=== PATIENT | female | born 1930 | race Caucasian/White ===

== ENCOUNTER 2017-02-28 10:15 | Inpatient (IN) | payer OTHER, MEDICARE ==
[~2017-02-28] VITALS: Ht 152.4 cm; Wt 58.6 kg
[~2017-02-28 10:15] MED LIST: ASPCH81X PO; BRIM0.2S OPB; CALC-51 PO; CEFT1INJ26 IV; CLON0.5T3 PO; DOCU100C31 PO; FRS/40 PO; GABA-112 PO; LEVE500T PO; MAGNTAB4 PO; METO-217 PO; PLV75 PO; POTA20TA16 PO; SIMV10TA2 PO
[2017-02-28] MEDS ORDERED: ASPIRIN 81 MG CHEW PO STA (10:35)
[2017-02-28] MEDS ORDERED: SLWMEC PO (10:53)
[2017-02-28 10:56] LABS: BASO % 0.2 %; BASO ABS # 0.01 K/uL (0-0.2); COMPLETE YES; EOS % 0.7 %; IG% 0.4 %; LYMPH % 17.5 %; MEAN CELL VOLUME 88.5 fL (80-100); MEAN CORPUSCULAR HEMOGLOBIN 29.4 pg (25-34); MEAN CORPUSCULAR HGB CONC 33.3 g/dl (32-36); MEAN PLATELET VOLUME 10.6 fL (7.4-10.4); MONO % 7.4 %; NEUT % 73.8 %; PLATELET COUNT 156 K/uL (130-400); RED BLOOD COUNT 4.52 M/uL (4.2-5.4); WHITE BLOOD COUNT 4.57 K/uL (4.8-10.8)
--- NOTE | 2017-02-28 11:00 | DIAGNOSTIC IMAGING REPORT ---
CHEST ONE VIEW PORTABLE CLINICAL HISTORY: Chest pain. COMPARISON STUDY: Chest radiograph September 30, 2016. FINDINGS: A proximal right humeral internal fixation, left axilla surgical clips and left subclavian Aarovi-z-Ucoh are in place. There is no pneumothorax. There is a possible small left pleural effusion. There is hazy left basilar opacity. Right lung is clear. There is no evidence of pulmonary edema. Moderate enlargement of the cardiac silhouette is unchanged. IMPRESSION: 1. Possible small left pleural effusion. Apparent left basilar opacity which could be artifactual. Radiographic follow-up is recommended. 2. Stable cardiomegaly without evidence of pulmonary edema. Electronically signed by: Jerome Juarez M.D. 02/28/2017 10:58 AM Dictated Date/Time: 02/28/2017 10:57 AM
[2017-02-28 11:17] LABS: BLOOD UREA NITROGEN 20 mg/dl (7-18); BUN/CREATININE RATIO 20.8 (10-20); CALCIUM 8.8 mg/dl (8.5-10.1); CARBON DIOXIDE 31 mmol/L (21-32); CHLORIDE 105 mmol/L (98-107); CREATININE 0.97 mg/dl (0.60-1.20); GLUCOSE 212 mg/dl (70-99); POTASSIUM 4.1 mmol/L (3.5-5.1); SODIUM 141 mmol/L (136-145)
[2017-02-28 11:23] LABS: ALKALINE PHOSPHATASE 76 U/L (45-117); ALT/SGPT 25 U/L (12-78); AST/SGOT 16 U/L (15-37); CKMB/CK RATIO 8.2 (0-3.0)
[2017-02-28 11:29] LABS: PROTHROMBIN TIME (PATIENT) 10.3 SECONDS (9.0-12.0)
[2017-02-28 12:54] LABS: CKMB/CK RATIO 7.9 (0-3.0)
--- NOTE | 2017-02-28 13:32 | EMERGENCY ROOM VISIT NOTE ---
History Report prepared by Norman: Song Rey Under the Supervision of: Dr. Albin Quinonez M.D. First contact with patient: 10:25 Chief Complaint: CHEST PAIN Stated Complaint: CHEST PAIN History of Present Illness The patient is a 86 year old female who presents to the Emergency Room with complaints of intermittent chest pain beginning yesterday. She states that she was sitting in a chair when her symptoms began. She states that her current pain became present 2.5 hours ago and is less severe than her pain yesterday. The patient denies any modifying factors. She has not had any aspirin today. Per caregiver, the patient has problems with two heart valves. Source of History: patient, caregiver Onset: Yesterday Position: chest Timing: intermittent Modifying Factors (Worsening): other (none) Modifying Factors (Relieving): other (none) Review of Systems See HPI for pertinent positives & negatives. A total of 10 systems reviewed and were otherwise negative. Past Medical & Surgical Medical Problems: (1) Acute blood loss anemia (2) Anticoagulants,Lt,Current Use (3) CHEST PAIN.AORTIC STENOSIS (4) CHF, VALVULAR HEART DISEASE,DM2,ART.HTN (5) Hypertension Nos (6) Mixed Hyperlipidemia (7) Pure Hypercholesterolem (8) TRANSIENT APHASIA, R/O CVA, HTN,DM2 Family History FH: cancer Stroke Social History Smoking Status: Never Smoker Alcohol Use: none Drug Use: none Marital Status: Housing Status: lives with family Occupation Status: retired Current/Historical Medications Scheduled Aspirin (Aspirin Chewable), 81 MG PO DAILY Brimonidine Tartrate-Timolol M (Combigan), 1 DROP OPB BID Clonazepam (Klonopin), 0.5 MG PO HS Clopidogrel Bisulfate (Clopidogrel), 75 MG PO QAM Docusate Sodium (Docusate Sodium), 1 CAP PO BID Furosemide (Lasix), 40 MG PO MWF Gabapentin (Neurontin), 100 MG PO TID Levetiractam (Levetiracetam), 500 MG PO BID Magnesium Chloride (Slow-Mag Tab), 64 MG PO BID Metoprolol Succinate (Toprol Xl), 50 MG PO DAILY Potassium Ext Rel (Klor-Con), 20 MEQ PO BID Simvastatin (Zocor), 10 MG PO QPM Allergies Coded Allergies: Sulfa Antibiotics (Verified Allergy, Unknown, ALLERGIC TO ABX FOR UTI, ) Physical Exam Vital Signs Date Time Temp Pulse Resp B/P Pulse Ox O2 Delivery O2 Flow Rate FiO2 02/28/17 14:12 79 18 137/82 95 Room Air 02/28/17 13:26 70 18 132/73 96 Room Air 02/28/17 12:16 68 02/28/17 12:15 75 18 138/73 95 Room Air 02/28/17 11:11 79 18 149/80 96 Room Air 02/28/17 10:45 98 Room Air 02/28/17 10:45 98 Room Air 02/28/17 10:45 98 Room Air 02/28/17 10:44 82 02/28/17 10:18 36.6 80 18 140/75 98 Room Air Physical Exam GENERAL: Patient is a healthy-appearing well-nourished HEAD: Normocephalic atraumatic EYES: Ocular movements intact pupils equal and react to light OROPHARYNX mucous membranes are moist no exudates present no erythema or edema present NECK: Supple no nuchal rigidity CHEST: Good equal expansion LUNGS: Clear and equal to auscultation CARDIAC: Grade 4/6 systolic murmur ABDOMEN: Soft nontender no guarding BACK: No CVA tenderness EXTREMITIES: No pain upon palpation normal muscle strength in all groups no clubbing cyanosis or edema NEURO: Patient is following commands is answering questions appropriately. Alert and oriented x3 Cranial Nerves 2-12 grossly intact Medical Decision & Procedures ER Provider Diagnostic Interpretation: X-ray results as stated below per interpretation by me and the radiologist: CHEST ONE VIEW PORTABLE FINDINGS: A proximal right humeral internal fixation, left axilla surgical clips and left subclavian Ohmyje-a-Sltq are in place. There is no pneumothorax. There is a possible small left pleural effusion. There is hazy left basilar opacity. Right lung is clear. There is no evidence of pulmonary edema. Moderate enlargement of the cardiac silhouette is unchanged. IMPRESSION: 1. Possible small left pleural effusion. Apparent left basilar opacity which could be artifactual. Radiographic follow-up is recommended. 2. Stable cardiomegaly without evidence of pulmonary edema. Electronically signed by: Jerome Juarez M.D. Laboratory Results 02/28/17 10:40 Red Blood Count 4.52, Mean Corpuscular Volume 88.5, Mean Corpuscular Hemoglobin 29.4, Mean Corpuscular Hemoglobin Concent 33.3, Mean Platelet Volume 10.6, Neutrophils (%) (Auto) 73.8, Lymphocytes (%) (Auto) 17.5, Monocytes (%) (Auto) 7.4, Eosinophils (%) (Auto) 0.7, Basophils (%) (Auto) 0.2, Neutrophils # (Auto) 3.37, Lymphocytes # (Auto) 0.80, Monocytes # (Auto) 0.34, Eosinophils # (Auto) 0.03, Basophils # (Auto) 0.01 02/28/17 10:40 Test 02/28/17 10:40 02/28/17 12:07 White Blood Count 4.57 K/uL (4.8-10.8) Red Blood Count 4.52 M/uL (4.2-5.4) Hemoglobin 13.3 g/dL (12.0-16.0) Hematocrit 40.0 % (37-47) Mean Corpuscular Volume 88.5 fL (80-100) Mean Corpuscular Hemoglobin 29.4 pg (25-34) Mean Corpuscular Hemoglobin Concent 33.3 g/dl (32-36) Platelet Count 156 K/uL (130-400) Mean Platelet Volume 10.6 fL (7.4-10.4) Neutrophils (%) (Auto) 73.8 % Lymphocytes (%) (Auto) 17.5 % Monocytes (%) (Auto) 7.4 % Eosinophils (%) (Auto) 0.7 % Basophils (%) (Auto) 0.2 % Neutrophils # (Auto) 3.37 K/uL (1.4-6.5) Lymphocytes # (Auto) 0.80 K/uL (1.2-3.4) Monocytes # (Auto) 0.34 K/uL (0.11-0.59) Eosinophils # (Auto) 0.03 K/uL (0-0.5) Basophils # (Auto) 0.01 K/uL (0-0.2) RDW Standard Deviation 43.0 fL (36.4-46.3) RDW Coefficient of Variation 13.4 % (11.5-14.5) Immature Granulocyte % (Auto) 0.4 % Immature Granulocyte # (Auto) 0.02 K/uL (0.00-0.02) Prothrombin Time 10.3 SECONDS (9.0-12.0) Prothromb Time International Ratio 1.0 (0.9-1.1) Anion Gap 5.0 mmol/L (3-11) Estimated GFR () 60.4 Estimated GFR (Non- 52.1 BUN/Creatinine Ratio 20.8 (10-20) Calcium Level 8.8 mg/dl (8.5-10.1) Total Bilirubin 0.5 mg/dl (0.2-1) Direct Bilirubin 0.1 mg/dl (0-0.2) Aspartate Amino Transf (AST/SGOT) 16 U/L (15-37) Alanine Aminotransferase (ALT/SGPT) 25 U/L (12-78) Alkaline Phosphatase 76 U/L (45-117) Total Protein 6.7 gm/dl (6.4-8.2) Albumin 3.2 gm/dl (3.4-5.0) Lipase 108 U/L (73-393) Total Creatine Kinase 34 U/L (26-192) Creatine Kinase MB 2.7 ng/ml (0.5-3.6) Creatine Kinase MB Ratio 7.9 (0-3.0) Troponin I 0.017 ng/ml (0-0.045) Labs reviewed by ED physician. Medications Administered Medications (Trade) Dose Ordered Sig/Romeo Route Start Time Stop Time Status Last Admin Dose Admin Aspirin (Aspirin Chew) 324 mg NOW STAT PO 02/28/17 10:35 02/28/17 10:37 DC 02/28/17 10:51 324 MG ECG Indication: chest pain Rate (beats per minute): 87 Rhythm: normal sinus Findings: no acute ischemic change, no ectopy Change: Repeat ECG reveals a sinus rhythm of 72 bpm. No ischemia or ectopy seen. LVH. Unchanged from previous ECG. ED Course 1029: Past medical records reviewed. The patient was evaluated in room B11B. A complete history and physical examination was performed. 1035: Ordered Aspirin Chew 324 mg PO. 1150: I reassessed the patient. She is currently pain free. 1322: Upon reexamination the patient is resting comfortably. I discussed results and treatment plan with the patient. She verbalizes agreement and understanding. I spoke with Dr. Montano from the [facility]. The patient will be evaluated for further management. Medical Decision Differential diagnosis: Etiologies such as cardiac ischemia, aortic dissection, pulmonary embolism, pneumonia, pneumothorax, musculoskeletal, infections, pericarditis, myocarditis , esophageal rupture, gastrointestinal, as well as others were entertained. This is an 86-year-old female who presents emergency department complaining of chest pain that occurred last evening and then prior to coming to the emergency department this morning. The patient's troponin is not 0. Repeat troponin was performed which had a slight increase. The patient was given 324 mg of aspirin in the emergency department. Repeat examination revealed improvement patient's symptoms. The patient I feel is at high risk as she has a history of severe aortic stenosis. I did discuss the case with the patient's hospitalist who agreed to admit the patient. Patient and family were in agreement with the treatment plan. Consults Time Called: 1301 Consulting Physician: Dr. Montano -[facility] Returned Call: 1324 I discussed the patient's case with Dr. Montano, he has agreed to evaluate the patient for further management and care. Impression Primary Impression: Chest pain Scribe Attestation The scribe's documentation has been prepared under my direction and personally reviewed by me in its entirety. I confirm that the note above accurately reflects all work, treatment, procedures, and medical decision making performed by me. Departure Information Dispostion Being Evaluated By Hospitalist Referrals Issa Chávez M.D. (PCP) Patient Instructions My [facility] Problem Qualifiers Primary Impression: Chest pain Chest pain type: unspecified Qualified Codes: R07.9 - Chest pain, unspecified
[2017-02-28] MEDS ORDERED: NITROGLYCERIN 0.4 MG SL PER TAB CHARGE SL PRN (14:30)
[2017-02-28 15:20] VITALS: BP 111/75; PULSE 88; TEMP 37.2; O2SAT 96; Ht 152.4 cm; Wt 58.6 kg
--- NOTE | 2017-02-28 17:21 | ECHOCARDIOGRAM REPORT ---
*NOTICE TO RECEIVING [employer] This information is strictly Confidential and protected under [place] law. [place] law prohibits you from making any further disclosure of this information unless further disclosure is expressly permitted by the written consent of the person to whom it pertains or is authorized by law. A general authorization for the release of medical or other information is not sufficient for this purpose. Hospital accepts no responsibility if the information is made available to any other person, INCLUDING THE PATIENT. Interpretation Summary * Name: JAMESON BROWNING Study Date: 02/28/2017 03:11 PM BP: 137/82 mmHg * Patient Location: .ED HR: 79 * : 1930 (M/d/yyyy) Gender: Female Height: 60 in * Age: 86 yrs Ethnicity: [place] Weight: 138 lb * Ordering Physician: Issa Chávez * Referring Physician: Self, Referred * Performed By: Van Reyes RCS * * Reason For Study: Chest Pain, Hx of Aortic Stenosis \T\ Mirtal Regurge * BSA: 1.6 m2 * -- Conclusions -- * 1. Normal LV size, borderline concentric LVH. * 2. Normal LV systolic function. LVEF 60-65%. No regional wall motion abnormalities. * 3. Normal RV size. Mildly reduced RV function. * 4. Aortic valve calcified with moderate to severe . Possible severe paradoxical low flow, low gradient (Peak V 3.1, MG 19 mmHg, FEDE 0.7, DI 0.22, SVI 24). No AI * 5. Severe posterior mitral valve leaflet prolapse. Moderate to severe eccentric MR. * 6. Moderate to severe PH. PASP estimated 60-65 mmHg. Est RA pressure 3 mmHg * 7. Grade II diastolic dysfunction * 8. Compared with prior study on 09/19/2016: No significant changes Procedure Details * A complete two-dimensional transthoracic echocardiogram was performed (2D, M-mode, Doppler and color flow Doppler). Left Ventricle * The left ventricle is grossly normal size. * There is borderline concentric left ventricular hypertrophy. * Ejection Fraction = 60-65%. * No regional wall motion abnormalities noted. Right Ventricle * The right ventricle is grossly normal size. * The right ventricular systolic function is reduced as assessed by tricuspid annular plane systolic excursion (TAPSE) (TAPSE <1.6 cm). Atria * The left atrial size is normal. * The right atrium is mildly dilated. * No ASD detected; PFO is not assessed. Mitral Valve * There is mild to moderate mitral annular calcification. * Prolapse of the posterior mitral leaflet(s). * There is moderate to severe mitral regurgitation. * The mitral regurgitant jet is eccentrically directed. * Flow reversal noted in pulmonary veins consistent with significant mitral regurgitation. Tricuspid Valve * The tricuspid valve is not well visualized, but is grossly normal. * There is no tricuspid stenosis. * There is trace tricuspid regurgitation. * Right ventricular systolic pressure is elevated at >60mmHg. Aortic Valve * Moderate to severe valvular aortic stenosis. * There is no significant aortic regurgitation. Pulmonic Valve * The pulmonary valve is inadequately visualized, but the Doppler data is adequate for interpretation. * Pulmonic stenosis is absent. * Trace pulmonic valvular regurgitation. Great Vessels * The aortic root and proximal ascending aorta are normal sized. * Mild pulmonary artery dilation. Pericardium/Pleural * There is no pericardial effusion. Great Vessels * Normal inferior vena cava size and collapsability with sniff indicates a normal right atrial pressure of 3 mmHg Left Ventricular Diastolic Function * Diastolic dysfunction, Grade II (pseudonormalization pattern). MMode 2D Measurements and Calculations IVSd 1.1 cm IVSs 1.3 cm LVIDd 4.2 cm LVIDs 3.1 cm LVPWd 1.1 cm LVPWs 1.2 cm IVS/LVPW 1.0 FS 25.4 % EDV(Teich) 78.3 ml ESV(Teich) 38.8 ml EF(Teich) 50.4 % EDV(cubed) 73.8 ml ESV(cubed) 30.7 ml EF(cubed) 58.4 % % IVS thick 17.3 % % LVPW thick 13.4 % LV mass(C)d 155.4 grams LV mass(C)dI 97.5 grams/m\S\2 LV mass(C)s 125.4 grams LV mass(C)sI 78.7 grams/m\S\2 CO(Teich) 3.6 l/min CI(Teich) 2.2 l/min/m\S\2 SV(Teich) 39.5 ml SI(Teich) 24.8 ml/m\S\2 CO(cubed) 3.9 l/min CI(cubed) 2.4 l/min/m\S\2 SV(cubed) 43.1 ml SI(cubed) 27.0 ml/m\S\2 Ao root diam 2.9 cm Ao root area 6.7 cm\S\2 LA dimension 4.0 cm asc Aorta Diam 3.1 cm LA/Ao 1.4 LVOT diam 2.0 cm LVOT area 3.2 cm\S\2 LVAd ap4 25.7 cm\S\2 LVLd ap4 7.1 cm EDV(MOD-sp4) 76.0 ml LVAs ap4 14.8 cm\S\2 LVLs ap4 5.8 cm ESV(MOD-sp4) 33.0 ml EF(MOD-sp4) 56.6 % LVAd ap2 20.5 cm\S\2 LVLd ap2 6.4 cm EDV(MOD-sp2) 55.0 ml LVAs ap2 12.9 cm\S\2 LVLs ap2 6.0 cm ESV(MOD-sp2) 24.0 ml EF(MOD-sp2) 56.4 % CO(MOD-sp4) 3.9 l/min CI(MOD-sp4) 2.4 l/min/m\S\2 SV(MOD-sp4) 43.0 ml SI(MOD-sp4) 27.0 ml/m\S\2 CO(MOD-sp2) 2.8 l/min CI(MOD-sp2) 1.8 l/min/m\S\2 SV(MOD-sp2) 31.0 ml SI(MOD-sp2) 19.4 ml/m\S\2 Doppler Measurements and Calculations MV A max hunter 126.0 cm/sec MV P1/2t max hunter 199.9 cm/sec MV P1/2t 47.5 msec MVA(P1/2t) 4.6 cm\S\2 MV dec slope 1233.6 cm/sec\S\2 MV dec time 0.12 sec Ao V2 max 307.4 cm/sec Ao max PG 37.8 mmHg Ao max PG (full) 36.0 mmHg Ao V2 mean 187.6 cm/sec Ao mean PG 17.0 mmHg Ao mean PG (full) 16.2 mmHg Ao V2 VTI 54.8 cm FEDE(I,A) 0.71 cm\S\2 FEDE(I,D) 0.71 cm\S\2 FEDE(V,A) 0.69 cm\S\2 FEDE(V,D) 0.69 cm\S\2 LV V1 max PG 1.8 mmHg LV V1 mean PG 0.85 mmHg LV V1 max 66.4 cm/sec LV V1 mean 42.8 cm/sec LV V1 VTI 12.2 cm SV(Ao) 365.0 ml SI(Ao) 228.9 ml/m\S\2 SV(LVOT) 38.7 ml SI(LVOT) 24.3 ml/m\S\2 PA V2 max 143.9 cm/sec PA max PG 8.3 mmHg TR max hunter 334.8 cm/sec
[2017-02-28] MEDS ORDERED: NON-FORMULARY MEDICATION SCH (18:30)
[2017-02-28 19:56] VITALS: BP 169/94; PULSE 90; TEMP 36.9; O2SAT 95
[2017-02-28] MEDS: POTASSIUM CHLORIDE 20 MEQ TABCR PO SCH (20:54)
[2017-02-28] MEDS: GABAPENTIN 100 MG CAP PO SCH (20:55)
[2017-02-28] MEDS: SIMVASTATIN 10 MG TAB PO SCH (20:56)
[2017-02-28] MEDS: DOCUSATE SODIUM 100 MG CAP PO SCH (20:56)
[2017-02-28] MEDS: MAGNESIUM CHLORIDE 64MG DELAYED REL TAB PO SCH (20:56)
[2017-02-28] MEDS: LEVETIRACETAM 500 MG TAB PO SCH (20:57)
[2017-02-28] MEDS ORDERED: ACETAMINOPHEN 325 MG TAB PO PRN (21:15)
--- NOTE | 2017-02-28 22:20 | HISTORY & PHYSICAL EXAMINATION ---
DATE OF ADMISSION: 02/28/2017 An 86-year-old female, admitted through the Emergency Room with recurrent persistent chest pain. HISTORY OF PRESENT ILLNESS: The patient with an extensive medical history. 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 The patient is at home with her . She stated that, last night, she presented with an anterior location chest pain. She was at rest. Actually, she stated that possibly for the last week or so, she has not been feeling well. Feeling tired. She had recurrent episodes of chest pain. No radiation of the pain. No diaphoresis. No shortness of breath. No dizziness or lightheadedness. This morning, she had an episode that has persisted. She was quite uncomfortable. Her called the office and we asked him to bring her to the Emergency Room. Initially, she did not want to do that, but he was able to convince her. She was evaluated by Dr. Quinonez. Multiple laboratory tests were ordered. Cardiac isoenzymes were negative for any acute myocardial injury. Her electrocardiogram did not show any new, acute changes. The patient was admitted for further treatment. PAST MEDICAL HISTORY: 1. She was hospitalized in August 2016 with acute congestive heart failure. 2. Severe valvular heart disease including severe mitral regurgitation and prolapse of the posterior leaflet of the mitral valve and ypwcgvez-iw-lyxjuy aortic stenosis. 3. Hospitalization in November 2004 with exertional chest pain. She did not have a myocardial infarction. 4. In 2013, she underwent revision of a failed open reduction and internal fixation of right proximal humerus fracture. She fell down on 02/08/2014 and she sustained a fracture. 5. History of right-sided pulmonary embolism in 2004. During her workup at that time, she was diagnosed with non-Hodgkin's lymphoma. She was treated and has been in remission. 6. Bilateral breast cancer with left mastectomy in 1984 and right mastectomy in 1994. 7. 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 8. Abdominal hysterectomy and bilateral salpingo-oophorectomy in the past. 9. Glaucoma, treated. 10. Severe scoliosis with severe spinal deformity. 11. Type 2 diabetes mellitus. 12. She has had a Pneumovax in the past. 13. She does receive yearly influenza vaccination. 14. In September 2016, she was hospitalized with transient ischemic attack. She also had what was thought to be seizure disorder and she has been on Keppra. SOCIAL HISTORY: She is . She has one son. No history of any smoking or alcohol. She is a homemaker. FAMILY HISTORY: Her mother at age 82, had a stroke. Her father at age 85, had cancer, not sure of the site. She had 2 brothers and 3 sisters. One sister at age 3 of meningitis. One brother in the [place] War. One sister had breast cancer and another sister also had breast cancer. ALLERGIES: SULFA. MEDICATIONS ON ADMISSION: All as noted on her home medication list. REVIEW OF SYSTEMS: She denied any headache. No dizziness, no lightheadedness. No earache, sore throat or neck pain. After she was given 324 mg of aspirin she stated that her chest pain subsided and she has not had any recurrence. No shortness of breath. No abdominal pain, no nausea, no vomiting. No problem with her bowel movements. No urinary problem. She does have chronic pain in her back and joints. PHYSICAL EXAMINATION: GENERAL: Well-developed, in no acute distress. VITAL SIGNS: On arrival to the Emergency Room; her blood pressure was 140/75, pulse 80, respirations 18, temperature 36.6 and oxygen saturation 98% on room air. Her recorded weight was 62.9 kilograms, height 152.4 cm and BMI of 27.1. SKIN: Warm and dry. No rash. HEENT: She has had prior cataract surgery. Has partial upper dentures. Lower partials. No mucosal abnormalities in her nose, mouth or throat. NECK: Supple. Nontender. No lymph node or thyroid enlargement. No JVD. Bilateral carotid bruits. CHEST: Status post bilateral mastectomies. HEART: Regular heart sounds with 3/6 systolic murmur. LUNGS: Clear. ABDOMEN: Soft and nontender. No organomegaly or masses. BACK: Severe scoliosis and deformity. EXTREMITIES: Osteoarthritic changes. No edema, clubbing or cyanosis. Decreased pedal pulses. NEUROLOGIC: She is alert and oriented. There is no evidence of any lateralized deficits. LABORATORY TESTS: WBC count 4570, hemoglobin 13.3, hematocrit 40, platelet count 156,000. Sodium 141, potassium 4.1, chloride 105, CO2 31, BUN 20, creatinine 0.97, glucose 212, calcium 8.8, total bilirubin 0.5, direct bilirubin 0.1, AST 16, ALT 25, alkaline phosphatase 76, total protein 6.7, albumin 3.2, total CK 38, MB fraction 3.1 and troponin I 0.016. Her chest x-ray showed no evidence of any congestive heart failure. She does have a stable cardiomegaly. There is a description of a small left pleural effusion and apparent left basilar opacity, which could be an artifact; followup is recommended. Her electrocardiogram showed evidence of sinus rhythm. No acute changes are noted. Has evidence of left ventricular hypertrophy. ASSESSMENT: 1. Chest pain. 2. Severe valvular heart disease with cgglunbq-jz-ioucyw aortic stenosis and severe mitral regurgitation. 3. Presumed coronary artery disease. 4. Atherosclerotic vascular disease with history of transient ischemic attacks. 5. Seizure disorder. 6. Severe osteoarthritis. 7. Severe scoliosis. 8. History of multiple malignancies including bilateral breast cancer, colon cancer and non-Hodgkin's lymphoma. PLAN: The patient was admitted to PCU with telemetry. Resuscitation level 1. All her laboratory tests were ordered. An echocardiogram was ordered, cardiac isoenzymes and serial electrocardiograms. She was continued on her medications. In the past, she had chest pain and she has known valvular heart disease, but given her multiple comorbidity it was thought that she is at very high risk for any attempt to try to replace her valves. She has been treated medically. She has been seen by Dr. Dovre in the past in cardiology and now she is seeing Dr. Ordaz. We will request a cardiology consultation from Dr. Ordaz, see what he recommends. In the meantime, we will monitor her condition closely and adjust her medications as indicated.
[2017-02-28 23:31] VITALS: BP 160/100; PULSE 92; TEMP 36.7; O2SAT 94
[2017-03-01 04:18] VITALS: BP 155/92; PULSE 83; TEMP 36.6; O2SAT 96
[2017-03-01 06:22] LABS: BASO % 0.4 %; BASO ABS # 0.02 K/uL (0-0.2); COMPLETE YES; EOS % 1.5 %; HEMATOCRIT 39.8 % (37-47); IG% 0.2 %; LYMPH % 33.5 %; LYMPH ABS # 1.59 K/uL (1.2-3.4); MEAN CELL VOLUME 88.4 fL (80-100); MEAN CORPUSCULAR HEMOGLOBIN 29.6 pg (25-34); MEAN CORPUSCULAR HGB CONC 33.4 g/dl (32-36); MEAN PLATELET VOLUME 10.3 fL (7.4-10.4); MONO % 8.6 %; NEUT % 55.8 %; PLATELET COUNT 148 K/uL (130-400); WHITE BLOOD COUNT 4.75 K/uL (4.8-10.8)
[2017-03-01 06:53] LABS: BUN/CREATININE RATIO 22.9 (10-20); CALCIUM 8.4 mg/dl (8.5-10.1)
[2017-03-01 06:59] LABS: CKMB/CK RATIO 6.7 (0-3.0)
[2017-03-01 07:30] VITALS: BP 152/87; PULSE 78; TEMP 36.9; O2SAT 94
--- NOTE | 2017-03-01 07:45 | Clinical Documentation Query ---
CLINICAL DOCUMENTATION QUERY Dr. RADHA OCHOA, In your clinical opinion is this patient being managed for: ( ) Chronic systolic and diastolic CHF ( ) Chronic diastolic CHF ( ) Chronic systolic CHF ( ) Other explanation of clinical findings (Please Explain) ( ) Unable to determine (Please Define) ( ) Need to Discuss ( x ) Not Agree The medical record reflects the following clinical findings, treatment, and risk factors. Clinical Indicators: H/P indicates pt had a prior hospitalization for acute CHF. Review of Aug 2016 admission indicates pt had acute CHF thought to be both systolic and diastolic. ECHO performed February 2017 showed EF 60-65% and grade II diastolic dysfunction. Treatment: chronic meds include lasix and toprol xl, Risk Factors: age, HTN, DM, atherosclerotic vascular disease, valvular heart disease, aortic stenosis Please clarify and document your clinical opinion in the progress notes and discharge summary. Terms such as "probable", "suspected", "likely", "questionable", "possible", or "still to be ruled out" are acceptable. IF IN AGREEMENT, YOU MUST DOCUMENT ABOVE DIAGNOSTIC STATEMENT IN DAILY PROGRESS NOTES AND DISCHARGE SUMMARY. This document is not part of the patient's record. Thank You, Bernadette Ordaz, RN [phone]
[2017-03-01] MEDS: MAGNESIUM CHLORIDE 64MG DELAYED REL TAB PO SCH ×2 (08:29→20:16)
[2017-03-01] MEDS: CLOPIDOGREL BISULFATE 75 MG TAB PO SCH (08:29)
[2017-03-01] MEDS: FUROSEMIDE 40 MG TAB PO SCH (08:29)
[2017-03-01] MEDS: LEVETIRACETAM 500 MG TAB PO SCH ×2 (08:29→20:16)
[2017-03-01] MEDS: DOCUSATE SODIUM 100 MG CAP PO SCH ×2 (08:29→20:16)
[2017-03-01] MEDS: GABAPENTIN 100 MG CAP PO SCH ×3 (08:29→20:17)
[2017-03-01] MEDS: METOPROLOL SUCC 50MG EXT REL TAB PO SCH (08:29)
[2017-03-01] MEDS: POTASSIUM CHLORIDE 20 MEQ TABCR PO SCH ×2 (08:30→20:17)
[2017-03-01 11:42] VITALS: BP 115/71; PULSE 69; TEMP 36.5; O2SAT 94
[2017-03-01 15:42] VITALS: BP 138/80; PULSE 67; TEMP 36.7; O2SAT 95
--- NOTE | 2017-03-01 17:47 | CARDIOLOGY CONSULTATION ---
DATE OF CONSULTATION: 03/01/2017 CONSULTATION REQUESTED BY: Dr. Montano. REASON FOR CONSULTATION: Chest discomfort. HISTORY OF PRESENT ILLNESS: Mrs. De La Rosa is a very pleasant 86-year-old woman with a history of severe valvular heart disease with known moderate to severe calcific aortic stenosis and severe posterior leaflet mitral valve prolapse with severe mitral regurgitation, chronic diastolic heart failure, extensive cancer history including non-Hodgkin lymphoma, breast cancer and colon cancer, all now thought in remission, diabetes, remote pulmonary embolism and presumed coronary artery disease who was readmitted in the setting of chest discomfort. The patient is known to me from the outpatient setting in prior hospitalizations. She was previously admitted in August of 2016 with what was thought to be an endovascular infection and was treated with prolonged IV antibiotics. She later was readmitted in September with a questionable TIA. She was last seen by me back in December of 2016, at which time overall she was stable. She states that over the last several weeks, she has had intermittent brief episodes of left-sided chest discomfort. These episodes can occur at any time and are did not seem to be brought on by any activities. She describes it as sharp pain, lasting for seconds to minutes, relieving without intervention. With this, she denies any significant shortness of breath, palpitations or presyncope. Prior to presenting to the Emergency Department, she had an extended episode yesterday while sitting on the couch and as a result came to the ED. At baseline, patient is somewhat limited from her functional capacity standpoint, she states she can walk up the 6 stairs in her home, but is somewhat winded by the time she reaches the top. Other than that, she does not do any significant housework or other strenuous activities. Upon reaching the ED, the patient was hemodynamically stable and chest pain free. She had an EKG which was unchanged from prior. Her cardiac enzymes have been negative x4. She has been hemodynamically and electrically stable, since admission. PAST MEDICAL HISTORY: 1. Prior admission for chest pain with presumed coronary artery disease. 2. Right-sided pulmonary emboli in 2004. 3. Non-Hodgkin lymphoma, post-chemotherapy. 4. Bilateral breast cancer. 5. Adenocarcinoma over the rectosigmoid area, diagnosed in 1996, stage B. 6. Hysterectomy and bilateral salpingo-oophorectomy in the past. 7. Glaucoma longstanding. 8. Chronic diastolic heart failure. 9. Cataract surgery. 10. Type 2 diabetes. 11. Severe scoliosis with severe spinal deformity. 12. Severe prolapse of the posterior leaflet of mitral valve with severe mitral regurgitation. 13. Moderate to severe aortic stenosis. FAMILY HISTORY: Noncontributory. SOCIAL HISTORY: She is a lifelong never smoker. She lives with her . Denies any tobacco, alcohol or illicit drugs. ALLERGIES: SHE IS ALLERGIC TO SULFA. HOME MEDICATIONS: Include aspirin 81, Plavix 75, brimonidine, clonazepam, docusate; Lasix 40 mg Tuesday, Tuesday, Tuesday; gabapentin, Keppra, magnesium oxide, Toprol-XL 50, Klor-Con 20 b.i.d. and simvastatin 10. REVIEW OF SYSTEMS: Ten point review of systems was completed and otherwise negative unless stated in HPI. PHYSICAL EXAMINATION: VITAL SIGNS: Temperature 36.5, pulse 69, blood pressure 115/71, satting 94% on room air. GENERAL: The patient appears comfortable in no acute distress. HEENT: Sclerae are anicteric. Oropharynx is clear. Mucous membranes are moist. NECK: Supple with no lymphadenopathy. LUNGS: Clear to auscultation bilaterally. HEART: Holosystolic murmur is heard posteriorly. CARDIOVASCULAR: She is regular with a 3/6 systolic ejection murmur heard best at the right upper sternal border. She has a 4/6 holosystolic murmur heard best at the apex. ABDOMEN: Soft, nontender, nondistended with positive bowel sounds. EXTREMITIES: Showed no significant lower extremity edema. She has intact distal pulses. SKIN: Shows no significant rashes. NEUROLOGIC: Grossly nonfocal. PSYCHIATRIC: Alert and oriented and appropriate. LABORATORY DATA: White blood cell count 4.7, hemoglobin of 13.3, platelets of 148. Sodium 141, potassium 4.0, BUN 23, creatinine 1.0. Troponin 0.017, 0.019, 0.022, 0.018. IMAGING: Chest x-ray shows possible small left pleural effusion, apparent left basilar opacity which could be artifactual, stable cardiomegaly without significant pulmonary edema. EKG shows sinus rhythm with LVH and inverted T waves in V1 and V2, unchanged from prior. Repeat EKG this morning shows again LVH with occasional PVC. Telemetry reviewed showed no significant arrhythmia. Echocardiogram completed yesterday showed normal LV size and borderline LVH, EF was 60-65%. There was normal RV size with mildly reduced RV function. There was moderate to severe aortic stenosis with a peak velocity of 3.1 and a mean gradient 19, calculated aortic valve area of 0.7 and dimensionless index of 0.22. There was severe posterior mitral valve leaflet prolapse with moderate to severe eccentric MR. There was moderate to severe pulmonary hypertension with an estimated PA pressure of 60-65, estimated RV pressure was 3, there was grade 2 diastolic dysfunction. IMPRESSION AND PLAN: 1. Atypical chest pain. 2. Moderate to severe valvular heart disease. 3. Moderate to severe pulmonary hypertension. 4. Chronic diastolic heart failure. 5. Arterial hypertension. Overall, from a cardiovascular standpoint, the patient appears to be stable since she was last seen in clinic 2 months ago. Her chest pain is atypical and is not associated with any significant EKG changes or elevation in cardiac enzymes. Suspicion that this is due to her valvular heart disease or other acute cardiac issue at this point is relatively low and feel that the patient's chest discomfort is low risk. With the patient's other comorbidities, atypical of nature of pain, I do not feel that further risk stratification is warranted at this time. Otherwise, the patient appears well perfused today without significant pulmonary or systemic venous congestion and no evidence of significant elevated right-sided filling pressures on echo. Her valvular function and left ventricular function is largely unchanged. Unfortunately, long-term she has limited options for valvular repair, but at this time she appears well compensated. From a cardiac standpoint, I feel she is safe for discharge to home and she can follow up with me in the next 1-2 months. This was discussed with Dr. Montano. [facility]
[2017-03-01 20:06] VITALS: PULSE 93; TEMP 36.4; O2SAT 98
[2017-03-01] MEDS: SIMVASTATIN 10 MG TAB PO SCH (20:16)
[2017-03-01 20:19] VITALS: BP 163/95; PULSE 84
--- NOTE | 2017-03-01 23:35 | PROGRESS NOTE ---
DATE: 03/01/2017 SUBJECTIVE: An 86-year-old female admitted with chest pain. She has valvular heart disease with aortic stenosis and mitral regurgitation. She is treated for type 2 diabetes mellitus, arterial hypertension and has a history of multiple malignancies. All her cardiac isoenzymes are negative for any evidence of myocardial injury. Her electrocardiograms do not show any acute changes. Her pain subsided after she was admitted. She denied any headache or dizziness. No chest pain. No shortness of breath. No abdominal pain, no nausea, no vomiting. No problem urinating. No pain in her extremities. PHYSICAL EXAMINATION: GENERAL: Well developed in no distress. VITAL SIGNS: Blood pressure 152/87, pulse 78, respirations 18, temperature 36.9, oxygen saturation 94% on room air. SKIN: Warm and dry. No rash. HEENT: No mucosal abnormality. NECK: No JVD, no adenopathy. HEART: Regular heart sounds with 2/6 systolic murmur. LUNGS: Clear. ABDOMEN: Soft. BACK: Severe kyphoscoliosis. EXTREMITIES: No edema, clubbing, or cyanosis. LABORATORY TESTS: WBC count 4750, hemoglobin 13.3, hematocrit 39.8, platelet count 148,000. Sodium 141, potassium 4.0, chloride 105, CO2 32, BUN 23, creatinine 1.0, glucose 121. Calcium 8.4, total CK 30, MB fraction 2.0. Troponin I 0.018. ASSESSMENT: 1. Chest pain. 2. Aortic stenosis. 3. Mitral regurgitation. 4. Arterial hypertension. 5. Type 2 diabetes mellitus. 6. Atherosclerotic vascular disease. 7. Seizure disorder. 8. History of multiple malignancies. Plan: 1. The patient was seen in consultation by Dr. Ordaz today. 2. She had an echocardiogram done. It is not showing any significant abnormality compared to her prior echocardiogram as far as her valvular heart disease and left ventricular ejection fraction. 3. She is pain free. 4. Will continue with the same medications. 5. We will continue monitoring. If she does not have any new symptomatology and findings, the plan is to send her home tomorrow.
[2017-03-02] VITALS: BP 148/76; PULSE 92; TEMP 36.9; O2SAT 95
[2017-03-02 04:03] VITALS: BP 135/79; PULSE 84; TEMP 36.7; O2SAT 96
[2017-03-02 06:26] LABS: BASO % 0.2 %; BASO ABS # 0.01 K/uL (0-0.2); COMPLETE YES; EOS % 1.4 %; HEMATOCRIT 39.7 % (37-47); IG% 0.4 %; LYMPH % 31.6 %; MEAN CELL VOLUME 87.8 fL (80-100); MEAN CORPUSCULAR HEMOGLOBIN 29.6 pg (25-34); MEAN CORPUSCULAR HGB CONC 33.8 g/dl (32-36); MEAN PLATELET VOLUME 9.9 fL (7.4-10.4); MONO % 10.1 %; NEUT % 56.3 %; PLATELET COUNT 153 K/uL (130-400); RED BLOOD COUNT 4.52 M/uL (4.2-5.4); WHITE BLOOD COUNT 5.06 K/uL (4.8-10.8)
[2017-03-02 07:06] LABS: BUN/CREATININE RATIO 26.7 (10-20); CALCIUM 8.4 mg/dl (8.5-10.1); CREATININE 0.97 mg/dl (0.60-1.20)
--- NOTE | 2017-03-02 07:20 | Discharge Instructions ---
Discharge Instructions Date of Service March 02, 2017. Admission Reason for Admission: Chest Pain, Aortic Stenosis Discharge Discharge Diagnosis / Problem: CHEST PAIN. AORTIC STENOSIS.,MITRAL REPURGITATION.,CORONARY ARTERY DISEASE Discharge Goals Goal(s): Decrease discomfort, Improve function, Increase independence, Improve disease control Activity Recommendations Activity Limitations: resume your previous activity . Current Hospital Diet Patient's current hospital diet: AHA Diet (Heart Healthy) Discharge Diet Recommended Diet: AHA Diet (Heart Healthy), Diabetes Type 2 Diet Pending Studies Studies pending at discharge: no Medical Emergencies . Who to Call and When: Medical Emergencies: If at any time you feel your situation is an emergency, please call 911 immediately. . Non-Emergent Contact Non-Emergency issues call your: Primary Care Provider . . "Provider Documentation" section prepared by Issa Montano. . VTE Core Measure Inpt VTE Proph given/why not?: Treatment not indicated
[2017-03-02] MEDS: DOCUSATE SODIUM 100 MG CAP PO SCH (07:35)
[2017-03-02] MEDS: LEVETIRACETAM 500 MG TAB PO SCH (07:35)
[2017-03-02 07:36] VITALS: BP 154/91; PULSE 82; TEMP 36.6; O2SAT 96
[2017-03-02] MEDS: POTASSIUM CHLORIDE 20 MEQ TABCR PO SCH (07:36)
[2017-03-02] MEDS: GABAPENTIN 100 MG CAP PO SCH (07:36)
[2017-03-02] MEDS: FUROSEMIDE 40 MG TAB PO SCH (07:36)
[2017-03-02] MEDS: METOPROLOL SUCC 50MG EXT REL TAB PO SCH (07:37)
[2017-03-02] MEDS: CLOPIDOGREL BISULFATE 75 MG TAB PO SCH (07:37)
[2017-03-02] MEDS: MAGNESIUM CHLORIDE 64MG DELAYED REL TAB PO SCH (07:37)
--- NOTE | 2017-03-02 09:46 | Cardiology Follow-Up ---
Subjective Subjective Date of Service: March 02, 2017. Additional Details: Feeling well this AM. No recurrent chest pain. No shortness of breath. Tele reviewed -- brief episodes of SVT (max few seconds), rate in 140-150s. Problem List Medical Problems: (1) Chest pain Status: Acute (2) CHF (congestive heart failure) Status: Acute (3) Encephalopathy Status: Acute (4) Hypoxia Status: Acute Review of Systems Constitutional: No fever Respiratory: No cough Cardiac: No chest pain Abdomen: No nausea, No pain Heme: No abnormal bleeding/bruising Endo: + fatigue Skin: No rash Objective Vital Signs Last Vital Signs Documentation Date Time Temp Pulse Resp B/P Pulse Ox O2 Delivery O2 Flow Rate FiO2 03/02/17 08:00 Room Air 03/02/17 07:36 36.6 82 18 154/91 96 Physical Exam: General Appearance: no apparent distress (3/6 systolic ejection murmur at RUSB ; 4/6 holosystolic at apex.) ENT: hearing grossly normal Respiratory/Chest: lungs clear, normal breath sounds Cardiovascular: regular rate, rhythm, no edema, + systolic murmur Abdomen: normal bowel sounds, non tender, soft Extremities: no pedal edema Neurologic/Psychiatric: alert, normal mood/affect Skin: warm/dry, no rash Assessment and Plan 1. Atypical chest pain -- resolved 2. Mod-severe aortic stenosis - stable on echo 3. Mod-severe mitral regurgitation - stable; no significant congestion on exam. 4. Pulmonary HTN -- stable 5. SVT - brief episodes on tele overnight Overall patient doing well and from a cardiac standpoint OK for discharge later today. Did have brief episodes of SVT overnight on tele -- if recurrent symptoms in the future can consider additional ambulatory monitoring. No change to current cardiac regimen. Follow-up with me in 1-2 months. Discharge planning: home Medications: Current Inpatient Medications Medications (Trade) Dose Ordered Sig/Romeo Route Start Time Stop Time Status Last Admin Dose Admin Nitroglycerin (Nitrostat Tab) 0.4 mg UD PRN SL 02/28/17 14:30 03/30/17 14:29 Clopidogrel Bisulfate (plAVix TAB) 75 mg QAM PO 03/01/17 09:00 03/31/17 08:59 03/02/17 07:37 75 MG Docusate Sodium (coLACE CAP) 100 mg BID PO 02/28/17 21:00 03/30/17 20:59 03/02/17 07:35 100 MG Furosemide (Lasix Tab) 40 mg QD@0900 PO 03/01/17 09:00 03/31/17 08:59 03/02/17 07:36 40 MG Gabapentin (Neurontin Cap) 100 mg TID PO 02/28/17 21:00 03/30/17 20:59 03/02/17 07:36 100 MG Levetiracetam (Keppra Tab) 500 mg BID PO 02/28/17 21:00 03/30/17 20:59 03/02/17 07:35 500 MG Magnesium Chloride (Slow-Mag Tab) 64 mg BID PO 02/28/17 21:00 03/30/17 20:59 03/02/17 07:37 64 MG Metoprolol Succinate (Toprol Xl Tab) 50 mg DAILY PO 03/01/17 09:00 03/31/17 08:59 03/02/17 07:37 50 MG Potassium Chloride (Klor-Con Tab) 20 meq BID PO 02/28/17 21:00 03/30/17 20:59 03/02/17 07:36 20 MEQ Simvastatin (Zocor Tab) 10 mg QPM PO 02/28/17 21:00 03/30/17 20:59 03/01/17 20:16 10 MG Miscellaneous Information (Order Awaiting Action) 1 ea QS N/A 03/01/17 00:00 03/31/17 00:00 Acetaminophen (Tylenol Tab) 650 mg Q4H PRN PO 02/28/17 21:15 03/30/17 21:14 02/28/17 21:42 650 MG Lab Results: 03/02/17 06:15 Red Blood Count 4.52, Mean Corpuscular Volume 87.8, Mean Corpuscular Hemoglobin 29.6, Mean Corpuscular Hemoglobin Concent 33.8, Mean Platelet Volume 9.9, Neutrophils (%) (Auto) 56.3, Lymphocytes (%) (Auto) 31.6, Monocytes (%) (Auto) 10.1, Eosinophils (%) (Auto) 1.4, Basophils (%) (Auto) 0.2, Neutrophils # (Auto ) 2.85, Lymphocytes # (Auto) 1.60, Monocytes # (Auto) 0.51, Eosinophils # (Auto ) 0.07, Basophils # (Auto) 0.01 03/02/17 06:15 Test 03/02/17 06:15 White Blood Count 5.06 K/uL (4.8-10.8) Red Blood Count 4.52 M/uL (4.2-5.4) Hemoglobin 13.4 g/dL (12.0-16.0) Hematocrit 39.7 % (37-47) Mean Corpuscular Volume 87.8 fL (80-100) Mean Corpuscular Hemoglobin 29.6 pg (25-34) Mean Corpuscular Hemoglobin Concent 33.8 g/dl (32-36) Platelet Count 153 K/uL (130-400) Mean Platelet Volume 9.9 fL (7.4-10.4) Neutrophils (%) (Auto) 56.3 % Lymphocytes (%) (Auto) 31.6 % Monocytes (%) (Auto) 10.1 % Eosinophils (%) (Auto) 1.4 % Basophils (%) (Auto) 0.2 % Neutrophils # (Auto) 2.85 K/uL (1.4-6.5) Lymphocytes # (Auto) 1.60 K/uL (1.2-3.4) Monocytes # (Auto) 0.51 K/uL (0.11-0.59) Eosinophils # (Auto) 0.07 K/uL (0-0.5) Basophils # (Auto) 0.01 K/uL (0-0.2) RDW Standard Deviation 42.4 fL (36.4-46.3) RDW Coefficient of Variation 13.2 % (11.5-14.5) Immature Granulocyte % (Auto) 0.4 % Immature Granulocyte # (Auto) 0.02 K/uL (0.00-0.02) Anion Gap 3.0 mmol/L (3-11) Est Creatinine Clear Calc Drug Dose 32.1 ml/min Estimated GFR () 60.4 Estimated GFR (Non- 52.1 BUN/Creatinine Ratio 26.7 (10-20) Calcium Level 8.4 mg/dl (8.5-10.1)
[2017-03-02 10:43] VITALS: BP 154/91; PULSE 82; TEMP 36.6; O2SAT 96
--- NOTE | 2017-03-02 23:38 | PROGRESS NOTE ---
DATE: 03/02/2017 An 86-year-old female, admitted with chest pain. She has aortic stenosis, moderate to severe. Also severe mitral regurgitation, presumed coronary artery disease, history of transient ischemic attacks and seizure disorder. She has a history of multiple malignancies including both breasts, colon cancer and non-Hodgkin's lymphoma. The patient was admitted. Cardiac isoenzymes were negative for any evidence of myocardial injury. An echocardiogram was done showing the valvular abnormalities as noted. She was seen in consultation by Dr. Herb Ordaz. The patient remained pain-free. She had no headache. No dizziness. No chest pain, no shortness of breath. She denied any abdominal pain. No nausea, no vomiting. She was complaining of back pain related to discomfort, related to the mattress. No pain in her extremities except what is related to her osteoarthritis. PHYSICAL EXAMINATION: GENERAL: Well-developed, in no distress. VITAL SIGNS: Blood pressure 154/91, pulse 82, respirations 18, temperature 36.6 and oxygen saturation 96% on room air. SKIN: Warm and dry. No rash. HEENT: No mucosal abnormalities. NECK: No JVD. Bilateral carotid bruits. HEART: Regular heart sounds with 3/6 systolic murmur. LUNGS: Clear. ABDOMEN: Soft and nontender. BACK: Severe scoliosis with severe deformities of her back. EXTREMITIES: No edema, clubbing or cyanosis. TODAY'S LABORATORY TESTS: WBC count 5060, hemoglobin 13.4, hematocrit 39.7 and platelet count 153,000. Sodium 143, potassium 4.0, chloride 105, CO2 35, BUN 26, creatinine 0.97, glucose 120 and calcium 8.4. ASSESSMENT: 1. Chest pain. No evidence of myocardial infarction. 2. Moderate to severe aortic stenosis. 3. Severe mitral regurgitation. 4. Arterial hypertension. 5. Type 2 diabetes mellitus. 6. History of multiple malignancies. PLAN: 1. Overall, her condition is stable. She has not had any chest pain. 2. All her workup was negative for any evidence of myocardial infarction. 3. Continuing all her medications. 4. The patient was discharged home. Followup with me in a week. Followup with Dr. Ordaz.
--- NOTE | 2017-03-13 22:33 | DISCHARGE SUMMARY ---
DISCHARGE DIAGNOSES: 1. Left-sided chest pain. 2. Aortic stenosis. 3. Mitral regurgitation. 4. Coronary artery disease. 5. Arterial hypertension. 6. Hyperlipidemia. 7. History of multiple malignancies including both breasts: A non-Hodgkin lymphoma. DISCHARGE MEDICATIONS: Included: 1. Aspirin 81 mg daily. 2. Combigan 1 drop in each eye twice a day. 3. Clonazepam 0.5 mg at bedtime. 4. Plavix 75 mg daily. 5. Docusate sodium 100 mg twice a day. 6. Furosemide 40 mg that she takes on Tuesday, Tuesday and Tuesday. 7. Gabapentin 100 mg 3 times a day. 8. Keppra 500 mg twice a day. 9. Magnesium chloride 64 mg twice a day. 10. Metoprolol succinate 50 mg daily. 11. Potassium chloride 20 mEq twice a day. 12. Simvastatin 10 mg daily. CONSULTATIONS: Dr. Herb Ordaz in cardiology. HISTORY OF PRESENT ILLNESS: Mrs. De La Rosa is an 86-year-old female admitted through the Emergency Room with recurrent persistent chest pain. The patient with extensive medical history including severe valvular heart disease with moderate to severe aortic stenosis, severe mitral regurgitation, prolapse of the posterior leaflet of her mitral valve, arterial hypertension, type 2 diabetes mellitus, atherosclerotic vascular disease, seizure disorder, multiple malignancies. The patient is at home with her . The night prior to her admission, she presented with chest pain, anterior in location was at rest. She stated that possibly for the last week or so she has not been feeling well. Feeling tired. Having recurrent episodes of chest pain. No radiation of the pain. No diaphoresis. No shortness of breath or lightheadedness. On the morning of admission, she presented with anterior chest pain. The pain persisted. Again, was not associated with any symptoms. She was brought to the Emergency Room. She was evaluated by Dr. Quinonez. Her initial evaluation was unremarkable for any evidence of any cardiac ischemia. The patient was admitted for further evaluation. PAST MEDICAL HISTORY, SOCIAL HISTORY AND FAMILY HISTORY: All as noted. ALLERGIES: 1. SULFA. MEDICATIONS ON ADMISSION: All as noted on her home medication list. PHYSICAL EXAMINATION AND ADMISSION LABORATORY TESTS: All as noted. HOSPITAL COURSE: The patient was admitted to PCU with telemetry. Resuscitation level 1. All her laboratory tests were ordered. Cardiac isoenzymes and serial electrocardiograms were ordered. An echocardiogram was also ordered. Cardiology consultation was requested from Dr. Ordaz. Her pain subsided. She was completely asymptomatic. Her cardiac isoenzymes did not show any evidence of any myocardial injury. Her echocardiogram continued to show the same valvular abnormalities with moderate to severe aortic stenosis. Also, she had evidence of severe posterior mitral valve leaflet prolapse with moderate to severe mitral regurgitation. Her left ventricular ejection fraction was 60-65%. She had a grade 2 diastolic dysfunction. There was no change in her echocardiogram compared to the prior echocardiogram done in August of 2016. Her condition remained stable. She was tolerating her diet. She was seen by Dr. Ordaz. No further evaluation or testing was recommended. She was continued on her same medications. The patient was discharged home. Medications as noted above. Follow up with me in the office in 1 week and follow up in the future with Dr. Ordaz.
== END 2017-03-02 11:40 | disposition home or self-care (01) | DRG 313 ==
LOC: ENRESERVTM → ENRESERVDT → C.EDB 10:17 → C.2T 14:32
PROVIDERS: ADMIT Internal Medicine; ATTEND Internal Medicine
DX: R07.89 Other chest pain (principal); I50.32 Chronic diastolic (congestive) heart failure; I47.1 Supraventricular tachycardia; I08.0 Rheumatic disorders of both mitral and aortic valves; I25.10 Atherosclerotic heart disease of native coronary artery without angina pectoris; I27.2 Other secondary pulmonary hypertension; I11.0 Hypertensive heart disease with heart failure; D11.9 Benign neoplasm of major salivary gland, unspecified; E11.9 Type 2 diabetes mellitus without complications; M41.9 Scoliosis, unspecified; G40.909 Epilepsy, unspecified, not intractable, without status epilepticus; E78.2 Mixed hyperlipidemia; E78.00 Pure hypercholesterolemia, unspecified; Z85.038 Personal history of other malignant neoplasm of large intestine; Z86.711 Personal history of pulmonary embolism; Z85.3 Personal history of malignant neoplasm of breast; Z92.21 Personal history of antineoplastic chemotherapy; Z86.73 Personal history of transient ischemic attack (TIA), and cerebral infarction without residual deficits; Z85.72 Personal history of non-Hodgkin lymphomas; Z79.82 Long term (current) use of aspirin; Z79.899 Other long term (current) drug therapy; Z79.02 Long term (current) use of antithrombotics/antiplatelets

== ENCOUNTER → 2017-11-11 | Outpatient (CLI) | payer OTHER, MEDICARE ==
[~2017-11-11] MED LIST changes: -CALC-51 PO; -CEFT1INJ26 IV; -MAGNTAB4 PO; +SLWMEC PO
[2017-11-11 15:04] LABS: BASO % 0.7 %; BASO ABS # 0.03 K/uL (0-0.2); EOS % 1.8 %; EOS ABS # 0.08 K/uL (0-0.5); HEMATOCRIT 40.4 % (37-47); HEMOGLOBIN 13.2 g/dL (12.0-16.0); IG# 0.02 K/uL (0.00-0.02); LYMPH ABS # 1.23 K/uL (1.2-3.4); MEAN CORPUSCULAR HEMOGLOBIN 29.4 pg (25-34); MEAN CORPUSCULAR HGB CONC 32.7 g/dl (32-36); MONO % 8.1 %; MONO ABS # 0.37 K/uL (0.11-0.59); NEUT ABS # 2.83 K/uL (1.4-6.5); PLATELET COUNT 168 K/uL (130-400); RED CELL DISTRIBUTION WIDTH CV 13.5 % (11.5-14.5); RED CELL DISTRIBUTION WIDTH SD 44.8 fL (36.4-46.3); WHITE BLOOD COUNT 4.56 K/uL (4.8-10.8)
[2017-11-11 15:44] LABS: ALBUMIN 3.2 gm/dl (3.4-5.0); ALKALINE PHOSPHATASE 76 U/L (45-117); ALT/SGPT 24 U/L (12-78); AST/SGOT 20 U/L (15-37); BLOOD UREA NITROGEN 17 mg/dl (7-18); CALCIUM 9.3 mg/dl (8.5-10.1); CARBON DIOXIDE 32 mmol/L (21-32); CHOLESTEROL 159 mg/dl (0-200); CREATININE 0.87 mg/dl (0.60-1.20); GLUCOSE 125 mg/dl (70-99); LDL CHOLESTEROL (DIRECT) 77 mg/dl; POTASSIUM 4.2 mmol/L (3.5-5.1); SODIUM 139 mmol/L (136-145)
[2017-11-12 07:56] LABS: HEMOGLOBIN A1C 6.5 % (4.5-5.6)
== END | disposition home or self-care (01) ==
LOC: C.LABSPEC 14:42
PROVIDERS: ATTEND Internal Medicine
DX: I25.10 Atherosclerotic heart disease of native coronary artery without angina pectoris (principal); I10 Essential (primary) hypertension; E78.5 Hyperlipidemia, unspecified; E11.9 Type 2 diabetes mellitus without complications